=== PATIENT | female | born 1985 | race Caucasian/White ===

== ENCOUNTER 2024-04-30 09:11 | Day surgery (SDC) | payer MEDICAID ==
[2024-04-30] VITALS (8 sets, daily range): BP systolic 109–124; BP diastolic 70–89; PULSE 68–75; RESP 16; TEMP 98.3; O2SAT 93–99
[~2024-04-30] VITALS: Ht 157.5 cm; Wt 104.8 kg
[2024-04-30] MEDS ORDERED: normal saline 1000ml 1,000 ML IV PRN (09:30)
[2024-04-30] MEDS ORDERED: SERT-434 PO (10:02)
== END 2024-04-30 12:20 | disposition home or self-care (01) ==
LOC: SSTAY O 09:11
PROVIDERS: ATTEND Radiology Diagnostic Radiology
DX: E04.2 Nontoxic multinodular goiter (principal)
CPT/HCPCS: 10005; 10006

== ENCOUNTER 2024-12-26 02:41 | Emergency (ER) | payer SELFPAY ==
[~2024-12-26] VITALS: Ht 157.5 cm; Wt 106.3 kg
[~2024-12-26 02:41] MED LIST: SERT-434 PO
[2024-12-26 02:44] VITALS: TEMP 99.2
[2024-12-26] MEDS ORDERED: AMOX-101 PO (02:57)
[2024-12-26] MEDS: ketorolac trometh 15mg/ml vial 15 MG/ML ML IM ONE (03:25)
[2024-12-26] MEDS: amoxicillin 250mg capsule PO ONE (03:25)
[2024-12-26] MEDS: neomy sulf/polymyx B sulf/HC 10ml otic suspension LEFT EAR ONE (03:25)
[2024-12-26 03:37] VITALS: BP 140/72; PULSE 91; RESP 16; O2SAT 96
== END 2024-12-26 03:38 | disposition home or self-care (01) ==
LOC: ER 02:42
DX: H60.92 Unspecified otitis externa, left ear (principal); Z79.899 Other long term (current) drug therapy
CPT/HCPCS: 82948; 96372; 99283; J1885